=== PATIENT | male | born 1960 | race Caucasian/White ===

== ENCOUNTER 2016-12-20 07:06 | Day surgery (SDC) | payer OTHER ==
--- NOTE | 2016-12-20 08:18 | PCM.OPNOTE ---
- General Post-Op/Procedure Note Date of Surgery/Procedure: 12/20/16 Operative Procedure(s): egd with bx Findings: gastritis duodenitis Pre Op Diagnosis: epigastric pain Post-Op Diagnosis: gastroduodenitis Anesthesia Technique: Other (see below) (topical 10 ml 1 %lido 5ml mouth was) Primary Surgeon: Michel Sheldon Pathology: stomach and duodenum Complications: None Condition: Good Free Text/Narrative:: see dictation
[2016-12-20 09:05] VITALS: BP 133/82
--- NOTE | 2016-12-20 10:18 | OR ---
DATE OF OPERATION: 12/20/2016 SURGEON: Michel Sheldon MD PROCEDURE PERFORMED: Esophagogastroduodenoscopy with cold forceps biopsy. PREOPERATIVE DIAGNOSIS: History of gastritis and celiac disease with a history of epigastric pain. POSTOPERATIVE DIAGNOSES: Duodenitis and gastritis. INDICATIONS FOR PROCEDURE: This is a 56-year-old white male, whom we have been treating for gastritis. He has had some persistent pain, does have a history of celiac disease, and because of no improvement with our change in medication, he was offered and accepted an EGD. DESCRIPTION OF OPERATION: After an excellent topical anesthetic was administered, 10 mL of mouthwash and 10 mL of 1% lidocaine, which was gargled, the bite block was inserted. The flexible endoscope was passed without difficulty down the patient's esophagus into the stomach. The stomach was insufflated scope was passed through the pylorus to the second portion of the duodenum and slowly withdrawn. The following findings were noted. First portion of the duodenum, mild duodenitis, biopsies were taken. The stomach demonstrated mild gastritis. Multiple biopsies were taken, especially in the area of the antrum. The esophagus was unremarkable. The stomach was deflated, scope was removed. The patient was taken back to his room awake, alert, and oriented. Vitals remained stable during the entire case. /[id number] BURT/MATTY
== END 2016-12-20 08:31 | disposition home or self-care (01) ==
LOC: FB.SDS 07:06
PROVIDERS: ATTEND Surgery
DX: K29.80 Duodenitis without bleeding (principal); K29.50 Unspecified chronic gastritis without bleeding; E11.9 Type 2 diabetes mellitus without complications; K21.9 Gastro-esophageal reflux disease without esophagitis; Z88.2 Allergy status to sulfonamides; Z88.8 Allergy status to other drugs, medicaments and biological substances; Z79.4 Long term (current) use of insulin; Z79.899 Other long term (current) drug therapy; Z98.890 Other specified postprocedural states
CPT/HCPCS: 82962; 88305; 88342